=== PATIENT | female | born 2000 | race African-American/Black ===

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

== ENCOUNTER 2021-04-26 15:47 | Emergency (ER) | payer OTHER | END 2021-04-26 19:49 | disposition home or self-care (01) | LOC: ERS 15:47 | DX: K59.00 Constipation, unspecified (principal); K62.89 Other specified diseases of anus and rectum | CPT/HCPCS: 74018 ==